=== PATIENT | female | born 1975 | race Caucasian/White ===

== ENCOUNTER 2022-01-31 23:02 | Emergency (ER) | payer SELFPAY ==
[~2022-01-31] VITALS: Ht 175.3 cm; Wt 99.8 kg
[2022-01-31 23:02] VITALS: BP 115/60
--- NOTE | 2022-01-31 23:02 | NUR ---
TO LOBBY A/W BED VIA WHEEL CHAIR, BIBA WITH C/O RT ELBOW AND HEAD
--- NOTE | 2022-02-01 01:38 | NUR ---
PATIETN AMBULATED TO [facility]
--- NOTE | 2022-02-01 01:44 | NUR ---
PT TAKEN TO BED 7
--- NOTE | 2022-02-01 03:06 | NUR ---
Dr. Duncan examining patient.
[2022-02-01] MEDS ORDERED: CIPR500T4 PO (03:16)
[2022-02-01 03:18] VITALS: BP 110/78
== END 2022-02-01 03:18 | disposition home or self-care (01) ==
LOC: MED 23:02
DX: R55 Syncope and collapse (principal); N39.0 Urinary tract infection, site not specified; R11.2 Nausea with vomiting, unspecified; F17.200 Nicotine dependence, unspecified, uncomplicated; Z90.49 Acquired absence of other specified parts of digestive tract
CPT/HCPCS: 81002; 81025; 93005; 99283